=== PATIENT | female | born 1935 | race Caucasian/White ===

== ENCOUNTER → 2020-08-03 | Outpatient (CLI) | payer MEDICARE ==
[~2020-08-03] MED LIST: ALBU2TAB4 PO; AMLO-483 PO; ATO40T PO; AZIL1TAB PO; CALC600T57 PO; CELE200C PO; CETI10CA5 PO; CLOP75TA28 PO; COEN400C8 OR; ESOM40CA39 PO; EZET10TA22 PO; FLU220IH INH; FOLI1TAB6 PO; GLUC1CAP11 PO; HYDR50TA15 PO; LANS15CA21 PO; LEVO112T32 PO; LISI-646 PO; METH500T22 PO; MONT10TA23 PO; MULTTAB99 PO; NOR10T PO; OMEG1CAP59 PO; ONDA-144 PO; OXYM0.0594; ROSU40TA PO; [UNRECOGNIZED DRUG - CODE]
[2020-08-03 12:22] LABS: Basophils # (auto) 0 10 ^3/uL (0-0.2); Basophils % (auto) 0.6 % (0.0-2.0); Eosinophils # (auto) 0.2 10 ^3/uL (0-0.8); Eosinophils % (auto) 2.6 % (0.0-7.0); Hematocrit 35.3 % (36.0-46.0); Hemoglobin 11.9 g/dL (12.2-16.2); Lymphocytes # (auto) 1.9 10 ^3/uL (0.4-5.4); Lymphocytes % (auto) 29.5 % (10.0-50.0); Mean Corpuscular Hgb Conc. 33.7 g/dL (32.0-36.0); Mean Corpuscular Volume 88.9 fL (80.0-100.0); Monocytes # (auto) 0.6 10 ^3/uL (0-1.3); Monocytes % (auto) 8.8 % (0.0-12.0); Neutrophils # (auto) 3.7 10 ^3/uL (1.6-8.6); Neutrophils % (auto) 58.5 % (37.0-80.0); Nucleated Red Blood Cells % 0.1 %; Platelet Count (auto) 432 10^3/uL (140-450); Red Blood Cells 3.96 10^6/uL (4.0-5.20); Red Cell Distribution Width 13.3 % (11.8-14.3); White Blood Cell 6.3 10^3/uL (4.4-10.8)
[2020-08-03 12:54] LABS: INR 1.18 (0.9-1.15)
[2020-08-03 13:00] LABS: Urine Bacteria NONE SEEN /hpf (None Seen); Urine Blood Negative /uL (Negative); Urine Specific Gravity 1.006 (1.001-1.035); Urine WBC <1 /hpf (0 - 5)
[2020-08-03 13:47] LABS: Calcium 9.1 mg/dL (8.5-10.1); Potassium 4.9 mmol/L (3.5-5.1)
[2020-08-03 13:53] LABS: BUN/Creatinine Ratio 25.6; Bilirubin, Total 0.3 mg/dL (0.2-1.0); Total Protein 6.6 g/dL (6.4-8.2)
== END | disposition home or self-care (01) ==
LOC: LAB 11:59
PROVIDERS: ATTEND Orthopaedic Surgery Adult Reconstructive Orthopaedic Surgery
DX: D68.9 Coagulation defect, unspecified (principal); I10 Essential (primary) hypertension
CPT/HCPCS: 36415; 80053; 81001; 85025; 85610; 85730

== ENCOUNTER 2020-08-08 06:31 | Inpatient (IN) | payer MEDICARE ==
[~2020-08-08] VITALS: Ht 30.5 cm; Wt 76.4 kg
[2020-08-08] MEDS: ACETAMINOPHEN IV 100 ML IV ONE ×2 (07:00→07:52)
[2020-08-08] MEDS ORDERED: VANCOMYCIN HCL 1000 MG VL ONE (07:21)
[2020-08-08] MEDS ORDERED: TRANEXAMIC ACID 20 ML ONE (07:24)
[2020-08-08] MEDS ORDERED: BUPIVACAINE W/ EPINEPH 0.25% INJ 50ML MDV ONE (07:24)
[2020-08-08] MEDS ORDERED: SUCCINYLCHOLINE CHLORIDE 20 MG/ML 10ML VIAL IV ONE (07:45)
[2020-08-08] MEDS ORDERED: LIDOCAINE 1% (LOCAL ANESTH.) PF 5ml SDV ONE (07:45)
[2020-08-08] MEDS ORDERED: ACETAMINOPHEN IV 1000 MG/100ML (10MG/ML) IV ONE (07:45)
[2020-08-08] MEDS ORDERED: KETOROLAC TROMETH 30 MG/ML 1ML VIAL ONE (07:47)
[2020-08-08] MEDS ORDERED: MIDAZOLAM HCL 1MG/1ML-2 ML VIAL ONE (07:50)
[2020-08-08] MEDS ORDERED: ROCURONIUM 10MG/ML 10ML VIAL IV ONE (07:52)
[2020-08-08] MEDS ORDERED: ceFAZolin 1GM/50ML 100 ML IV ONE (07:53)
[2020-08-08] MEDS ORDERED: ETOMIDATE (2MG/ML) 20ML VIAL IV ONE (08:04)
[2020-08-08] MEDS ORDERED: METOCLOPRAMIDE HCL 5MG/ml INJ 2ml VIAL ONE (08:05)
[2020-08-08] MEDS ORDERED: fentaNYL CITRATE 100 MCG/2 ML VL ONE (08:28)
[2020-08-08] MEDS ORDERED: diphenhdrAMINE HCL 50 MG/1 ML VL IV ONE (08:45)
[2020-08-08] MEDS ORDERED: ONDANSETRON HCL 4 MG/2 ML VIAL IV PRN (08:45)
[2020-08-08] MEDS ORDERED: NALOXONE HCL 0.4 MG/ML VIAL IV PRN (08:45)
[2020-08-08] MEDS ORDERED: HYDROmorphone HCL 2 MG/ML VL IV PRN (08:45)
[2020-08-08] MEDS ORDERED: GLYCOPYRROLATE 0.2 MG/ML 1ML VIAL ONE (09:41)
[2020-08-08] MEDS ORDERED: NEOSTIGMINE 1 MG/ML INJ (10mg/10ML VIAL) ONE (09:41)
[2020-08-08] MEDS ORDERED: MEPERIDINE HCL (25 MG/ML) 1ML VIAL ONE (09:50)
[2020-08-08] MEDS ORDERED: LEVOTHYROXINE SODIUM 112 MCG TAB PO SCH (10:00)
[2020-08-08] MEDS ORDERED: AZILSARTAN MEDOXOMIL 40 MG PO SCH (10:00)
[2020-08-08] MEDS ORDERED: ACETAMINOPHEN 325 MG TAB PO PRN (10:00)
[2020-08-08] MEDS ORDERED: NITROGLYCERIN 0.4 MG SL TAB SL PRN (10:00)
[2020-08-08] MEDS: MONTELUKAST SODIUM 10 MG TAB PO SCH (10:00)
[2020-08-08] MEDS: CLOPIDOGREL BISULFATE 75 MG TAB PO SCH (10:00)
[2020-08-08] MEDS: ceFAZolin 1GM/50ML 50 ML IV SCH ×2 (10:00→19:38)
[2020-08-08] MEDS: MULTIPLE VITAMIN TAB PO SCH (10:00)
[2020-08-08] MEDS: D5W/LACTATED RINGERS 1,000 ML IV SCH ×2 (10:00→23:38)
[2020-08-08] MEDS ORDERED: diphenhdrAMINE HCL 25 MG CAP PO PRN (10:00)
[2020-08-08] MEDS: LISINOPRIL 20 MG TAB PO SCH ×2 (10:00→22:18)
[2020-08-08] MEDS: HYDROmorphone HCL 2 MG/ML VL IV PRN ×2 (10:30→10:40)
[2020-08-08] MEDS: SODIUM CHLOR 0.9% PF (SALINE LOCK) 10ML VIAL/SYR IV SCH ×2 (14:00→22:16)
[2020-08-08] MEDS: HYDROcodone-ACET 10/325MG TAB PO PRN (16:13)
[2020-08-08] MEDS: METHOCARBAMOL 500 MG TAB PO SCH ×2 (16:56→22:21)
[2020-08-08] MEDS: hydrALAZINE HCL 25 MG TAB PO SCH ×2 (16:56→22:17)
[2020-08-08] MEDS ORDERED: MILK OF MAGNESIA 30ML SUSP PO PRN (19:00)
[2020-08-08] MEDS ORDERED: ALBUTEROL SULF 2.5 MG/0.5ML(0.5%) NEB SOLN NEB PRN (19:30)
--- NOTE | 2020-08-08 19:31 | NUR ---
Opening Shift Note Assumed care of patient after receiving report from RADHA Amaro. Patient is awake and alert with no S/S of distress/SOB or pain. Call light within reach, bed in lowest locked position x2 side rails, HOB semi fowlers. Instructed on POC and to call for assist PRN, will continue to monitor for changes Q1hr and PRN.
[2020-08-08] MEDS: ONDANSETRON ODT 4 MG TAB PO PRN (19:39)
--- NOTE | 2020-08-08 20:00 | NUR ---
Scheduled IVF held/Not due D5/LR scheduled for 20:00 held, not due at this time as approximately 400 ml of fluid still remaining in bag. Will administer when remaining fluid is complete.
--- NOTE | 2020-08-08 21:50 | NUR ---
IV removal Patient c/o IV leaking. IV DC'd with clean sterile technique, catheter fully intact. Pressure dressing applied to site. Patient tolerated well.
[2020-08-08 22:00] VITALS: BP 148/76
[2020-08-08] MEDS: ATORVASTATIN 20 MG TAB PO SCH (22:00)
[2020-08-08] MEDS: FLUTICASONE PROP NASAL SPR 0.05 % (50MCG) 16GM EACHNOSTRI SCH (22:00)
[2020-08-08] MEDS: CELECOXIB 100 MG CAP PO SCH (22:17)
--- NOTE | 2020-08-08 22:57 | NUR ---
IV insertion IV access obtained, via clean sterile technique by inserting 22 gauge catheter at right hand after 1 attempt. IV secured properly. No trauma to site. Patient tolerated well.
[2020-08-09 00:12] VITALS: BP 148/76
--- NOTE | 2020-08-09 00:12 | NUR ---
Respiratory note: PT SEEN AND ASSESSED FOR PRN MED NEB TX AT 0012. TX IS NOT INDICATED AT THIS TIME. PT WAS SLEEPING WHEN ENTERING THE ROOM, NO SIGNS OF DISTRESS NOTED. HR 72 RR 16 SP02 95% ON ROOM AIR.
[2020-08-09] MEDS: ceFAZolin 1GM/50ML 50 ML IV SCH (02:10)
[2020-08-09 05:00] VITALS: BP 158/70
[2020-08-09] MEDS: HYDROcodone-ACET 10/325MG TAB PO PRN ×3 (05:11→20:10)
[2020-08-09] MEDS: D5W/LACTATED RINGERS 1,000 ML IV SCH (06:12)
[2020-08-09] MEDS: METHOCARBAMOL 500 MG TAB PO SCH ×3 (06:13→22:02)
[2020-08-09] MEDS: SODIUM CHLOR 0.9% PF (SALINE LOCK) 10ML VIAL/SYR IV SCH ×3 (06:13→22:02)
[2020-08-09] MEDS: LEVOTHYROXINE SODIUM 112 MCG TAB PO SCH (06:14)
[2020-08-09] MEDS: hydrALAZINE HCL 25 MG TAB PO SCH ×3 (06:25→22:02)
[2020-08-09 09:15] LABS: Basophils # (auto) 0 10 ^3/uL (0-0.2); Basophils % (auto) 0.6 % (0.0-2.0); Eosinophils # (auto) 0.1 10 ^3/uL (0-0.8); Hematocrit 31.5 % (36.0-46.0); Hemoglobin 10.6 g/dL (12.2-16.2); Lymphocytes # (auto) 0.9 10 ^3/uL (0.4-5.4); Lymphocytes % (auto) 10.7 % (10.0-50.0); Mean Corpuscular Hgb Conc. 33.5 g/dL (32.0-36.0); Mean Corpuscular Volume 89.7 fL (80.0-100.0); Monocytes # (auto) 0.7 10 ^3/uL (0-1.3); Monocytes % (auto) 8.1 % (0.0-12.0); Neutrophils # (auto) 6.9 10 ^3/uL (1.6-8.6); Neutrophils % (auto) 79.6 % (37.0-80.0); Platelet Count (auto) 265 10^3/uL (140-450); Red Blood Cells 3.51 10^6/uL (4.0-5.20); Red Cell Distribution Width 13.3 % (11.8-14.3); White Blood Cell 8.6 10^3/uL (4.4-10.8)
[2020-08-09 09:35] LABS: Albumin 2.7 g/dL (3.4-5.0); Potassium 4.3 mmol/L (3.5-5.1)
[2020-08-09 09:39] LABS: BUN/Creatinine Ratio 16.9; Bilirubin, Total 0.3 mg/dL (0.2-1.0); Total Protein 5.2 g/dL (6.4-8.2)
[2020-08-09 09:51] VITALS: BP 125/59
[2020-08-09] MEDS ORDERED: AZILSARTAN MEDOXOMIL 40 MG PO SCH (10:00)
--- NOTE | 2020-08-09 10:00 | NUR ---
Respiratory note: ASSESSED PT FOR PRN TX PT WAS AWAKE AND ALERT, NO RESP DISTRESS NOTED. HR 86, RR 18, SPO2 95% ON ROOM AIR. BS ARE CLEAR, NO INDICATION FOR TX AT THIS TIME. PT KNOWS TO HAVE RT PAGED IF TX IS NEEDED.
[2020-08-09 10:19] LABS: INR 1.4 (0.9-1.15); Partial Thromboplastin Time 22.7 sec (23.0-31.2)
[2020-08-09] MEDS: FLUTICASONE PROP NASAL SPR 0.05 % (50MCG) 16GM EACHNOSTRI SCH ×2 (10:47→22:00)
[2020-08-09] MEDS: LORATADINE 10 MG TAB PO SCH (10:48)
[2020-08-09] MEDS: CELECOXIB 100 MG CAP PO SCH ×2 (10:48→22:53)
[2020-08-09] MEDS: MULTIPLE VITAMIN TAB PO SCH (10:48)
[2020-08-09] MEDS: CLOPIDOGREL BISULFATE 75 MG TAB PO SCH (10:49)
[2020-08-09] MEDS: amLODIPine BESYLATE 5 MG TAB PO SCH (10:49)
[2020-08-09 13:00] VITALS: BP 139/80
[2020-08-09] MEDS: MONTELUKAST SODIUM 10 MG TAB PO SCH (15:24)
[2020-08-09] MEDS: LISINOPRIL 20 MG TAB PO SCH ×2 (15:25→22:04)
[2020-08-09 16:30] VITALS: BP 138/64
[2020-08-09] MEDS: SODIUM CHLORIDE 0.9% 1,000 ML IV SCH (17:31)
[2020-08-09] MEDS: ONDANSETRON ODT 4 MG TAB PO PRN (18:20)
--- NOTE | 2020-08-09 18:36 | NUR ---
Respiratory note: NO PRN TX GIVEN AT THIS TIME, NOT INDICATED. PT DENIES SOB AT THIS TIME, SPO2 98% ON R/A. PT STATES SHE JUST WEARS O2 AT NIGHT AT HOME. NO SOB NOTED, PT FINISHING DINNER.
--- NOTE | 2020-08-09 19:30 | NUR ---
Opening Shift Note Assumed care of patient, awake and alert x4. No S/S of distress/SOB. Complaints of pain 9/0-10 to the left shoulder, will medicate as ordered. Dressing to the left shoulder is C/S/I. Left arm brace is in place. Call light is within reach, side rails up x2, bed is in the lowest position. Instructed on POC and to call for assist PRN, will continue to monitor for changes Q1hr and PRN.
--- NOTE | 2020-08-09 20:10 | NUR ---
Patient is complaining of aching pain to the left shoulder. 9/0-10. She is requesting Ashley 10. Ashley 10 administered, call light is within reach, will continue to monitor.
--- NOTE | 2020-08-09 21:05 | NUR ---
Patient is resting in bed asleep, no S/S of pain noted.
[2020-08-09 22:00] VITALS: BP 135/77
[2020-08-09] MEDS: ATORVASTATIN 20 MG TAB PO SCH (22:02)
[2020-08-10] MEDS: HYDROcodone-ACET 10/325MG TAB PO PRN ×4 (01:01→19:30)
--- NOTE | 2020-08-10 01:01 | NUR ---
Patient is complaining of aching pain to the left shoulder. 8/0-10. [place] 10 administered, call light is within reach, will continue to monitor.
--- NOTE | 2020-08-10 02:01 | NUR ---
Patient is resting in bed asleep, no S/S of pain noted.
[2020-08-10 05:00] VITALS: BP 138/60
[2020-08-10] MEDS: SODIUM CHLORIDE 0.9% 1,000 ML IV SCH ×2 (05:50→19:10)
[2020-08-10] MEDS: SODIUM CHLOR 0.9% PF (SALINE LOCK) 10ML VIAL/SYR IV SCH ×3 (05:57→21:59)
[2020-08-10] MEDS: METHOCARBAMOL 500 MG TAB PO SCH ×3 (05:57→21:58)
[2020-08-10] MEDS: hydrALAZINE HCL 25 MG TAB PO SCH ×3 (05:58→21:57)
[2020-08-10] MEDS: LEVOTHYROXINE SODIUM 112 MCG TAB PO SCH (06:29)
--- NOTE | 2020-08-10 06:29 | NUR ---
Patient is complaining of pain 8/0-10 to the left shoulder stating it is hurting enough to keep her from falling asleep. [place] 10 administered.
--- NOTE | 2020-08-10 07:34 | NUR ---
Respiratory note: PT OXYGEN DELIVERY AND VITALS ASSESSED. SPO2 94% HEART RATE 81 BREATH SOUNDS CLEAR. PT IN NO RESPIRATORY DISTRESS AT THIS TIME. Addendum: 08/10/20 at 0736 by GERARDO BROOKS RT RT Amended: Links added.
--- NOTE | 2020-08-10 07:45 | NUR ---
STATUS PT SITTING IN BED, AWAKE A&O EATING BREAKFAST. PT DRESSING TO LEFT UPPER ARM/SHOULDER CDI. PT C/O PAIN TO LEFT SHOULDER S/P SX, HOWEVER NOT WANTING MEDICATION AT THIS TIME. PT REQUESTING STOOL SOFTENER DUE TO FEELING A BIT CONSTIPATED. LAST BM THE 4TH PRE ADMISSION. WILL REQUEST PRUNE JUICE AND LOOK AND MEDICATE PER JAN. PT BED IN LOW POSITION, CALL LIGHT IN REACH, NO S/S OF DISTRESS AT THIS TIME. WILL CONTINUE TO MONITOR.
[2020-08-10 09:00] VITALS: BP 118/62
--- NOTE | 2020-08-10 09:42 | NUR ---
DR PEOPLES AT BEDSIDE STATES PT WILL BE OK TO D/C TOMORROW ORDER GIVEN FOR [facility]
[2020-08-10] MEDS: CELECOXIB 100 MG CAP PO SCH ×2 (10:00→22:20)
--- NOTE | 2020-08-10 11:31 | NUR ---
Assessment Patient is an 84-year-old female who is alert and oriented. Prior to admission patient lived home with her [place] and functioned independently. Per patient prior to admission patient can care for her own ADLs. Per patient she has a walker and cane for home use. Per patient she will return home to her prior living arrangements post discharge and her will transport her home. Advised patient there is a social service consult for home health safety evaluation and physical therapy. Information and choice letter was given to patient. Patient requested [facility] that doctor recommended. Informed patient clinical information will be faxed to agency. Informed patient she has a right to participate in all discharge planning. Patient verbalized understanding and agreed to discharge plan. Faxed clinical information to [facility]. Per [facility] with [facility] patient has been [facility] and service to start within 24-48hrs upon d/c day. Addendum: 08/10/20 at 1133 by SANJEEV RIZZO Amended: Links added.
[2020-08-10] MEDS: FLUTICASONE PROP NASAL SPR 0.05 % (50MCG) 16GM EACHNOSTRI SCH ×2 (11:33→22:19)
[2020-08-10] MEDS: amLODIPine BESYLATE 5 MG TAB PO SCH (11:33)
[2020-08-10] MEDS: CLOPIDOGREL BISULFATE 75 MG TAB PO SCH (11:34)
[2020-08-10] MEDS: MULTIPLE VITAMIN TAB PO SCH (11:34)
[2020-08-10] MEDS: LORATADINE 10 MG TAB PO SCH (11:34)
[2020-08-10] MEDS: LISINOPRIL 20 MG TAB PO SCH ×2 (11:35→22:00)
[2020-08-10] MEDS: MONTELUKAST SODIUM 10 MG TAB PO SCH (11:36)
[2020-08-10 13:00] VITALS: BP 147/82
--- NOTE | 2020-08-10 13:35 | NUR ---
Patient back from OR at this time dressing to right stump c/d/i VSS bp 149/86 hr 55 o2 97% RR16, pt denies pain at this time. Patient sitting up eating at this time, call light within reach. Will medicate with 1000 morning meds at this time Addendum: 08/10/20 at 1347 by Arlene Cervantes RN DISREGARD NOTE WRONG PATIENT
--- NOTE | 2020-08-10 16:51 | NUR ---
SPOKE TO PT RE DISCHARGE INSTRUCTIONS AND SHE WAS SURPRISED PT STATES SHE WASN'T PREPARED TO GO TODAY SHE TOLD HER SHE WOULDN'T BE HOME UNTIL TOMORROW AND HE IS STAYING WITH FAMILY TONIGHT. JUDE CAMARGO NOTIFIED AND APOLOGIZED FOR ANY MISUNDERSTANDING. D/C ORDER CHANGED TO TOMORROW.
--- NOTE | 2020-08-10 16:54 | NUR ---
PAIN MEDICATION FILLED AND READ[facility] PT AWARE AND STATES HER WILL PICK IT UP TOMORROW WHEN HE PICKS HER UP.
[2020-08-10 16:55] LABS: Calcium 8.2 mg/dL (8.5-10.1); Potassium 4.4 mmol/L (3.5-5.1)
[2020-08-10 17:00] VITALS: BP 129/66
--- NOTE | 2020-08-10 19:30 | NUR ---
Opening Shift Note Received report from ermelinda Wang RN. Assumed care of patient, awake and alert x4. No S/S of distress/SOB. Complaints of pain to left, will medicate as ordered. Dressing to the left shoulder is Clean, dry and intact. Left arm brace in place. Call light is within reach, side rails up x2, bed is in the lowest position. Instructed on POC and to call for assist PRN, will continue to monitor for changes Q1hr and PRN.
--- NOTE | 2020-08-10 19:43 | NUR ---
PT ASSESSED FOR PRN MED NEB TX. SPO2 95% ON RA, HR 92. PT DENIES ANY RESPIRATORY DISTRESS. NO TX INDICATED. PT IS AWARE TO HAVE RT PAGED IF TX NEEDED.
[2020-08-10] MEDS: ATORVASTATIN 20 MG TAB PO SCH (21:57)
[2020-08-10] MEDS: KETOROLAC TROMETH 30 MG/ML 1ML VIAL IV PRN (21:57)
[2020-08-10 22:00] VITALS: BP 135/68
[2020-08-11] MEDS: HYDROcodone-ACET 10/325MG TAB PO PRN ×3 (03:18→13:35)
[2020-08-11 05:00] VITALS: BP 134/71
[2020-08-11] MEDS: SODIUM CHLOR 0.9% PF (SALINE LOCK) 10ML VIAL/SYR IV SCH (06:12)
[2020-08-11] MEDS: hydrALAZINE HCL 25 MG TAB PO SCH (06:13)
[2020-08-11] MEDS: METHOCARBAMOL 500 MG TAB PO SCH (06:13)
[2020-08-11] MEDS: SODIUM CHLORIDE 0.9% 1,000 ML IV SCH (06:14)
[2020-08-11] MEDS: LEVOTHYROXINE SODIUM 112 MCG TAB PO SCH (06:14)
--- NOTE | 2020-08-11 07:30 | NUR ---
Opening Shift Note Assumed care of patient, awake and alert. No S/S of distress/SOB, reports moderate pain. Instructed on POC and to call for assist PRN, will continue to monitor for changes Q1hr and PRN.
[2020-08-11] MEDS: FLUTICASONE PROP NASAL SPR 0.05 % (50MCG) 16GM EACHNOSTRI SCH (09:37)
[2020-08-11] MEDS: LORATADINE 10 MG TAB PO SCH (09:38)
[2020-08-11] MEDS: MULTIPLE VITAMIN TAB PO SCH (09:38)
[2020-08-11] MEDS: CELECOXIB 100 MG CAP PO SCH (09:38)
[2020-08-11] MEDS: amLODIPine BESYLATE 5 MG TAB PO SCH (09:39)
[2020-08-11] MEDS: CLOPIDOGREL BISULFATE 75 MG TAB PO SCH (09:39)
[2020-08-11] MEDS: LISINOPRIL 20 MG TAB PO SCH (09:40)
[2020-08-11] MEDS: MONTELUKAST SODIUM 10 MG TAB PO SCH (09:40)
[2020-08-11 11:25] VITALS: BP 114/58
[2020-08-11] MEDS: KETOROLAC TROMETH 30 MG/ML 1ML VIAL IV PRN (11:53)
--- NOTE | 2020-08-11 14:00 | NUR ---
Discharge instructions given as ordered. Encourage to follow up with PMD as instructed. All questions and concerns addressed. Patient verbalized understanding. Medication reconciliation form completed and copy given to patient. Home medications held in Pharmacy returned to patient. IV removed with catheter intact, pressure dressing applied. Telemetry unit returned to ICU. Patient taken to vehicle via wheelchair with all personal belongings, brace in place, accompanied by staff and family member. No distress noted at time of departure.
== END 2020-08-11 14:15 | disposition home health service (06) | DRG 483 ==
LOC: OVERFLOW 06:31 → EDSTATUS 09:30 → TELE-WESTW 12:22
PROVIDERS: ADMIT Orthopaedic Surgery Adult Reconstructive Orthopaedic Surgery; ATTEND Orthopaedic Surgery Adult Reconstructive Orthopaedic Surgery
PROC: 0RRK00Z Replacement of Left Shoulder Joint with Reverse Ball and Socket Synthetic Substitute, Open Approach (ICD-10-PCS; principal; 2020-08-08 08:04)
DX: M19.012 Primary osteoarthritis, left shoulder (principal); I25.10 Atherosclerotic heart disease of native coronary artery without angina pectoris; I10 Essential (primary) hypertension; J45.909 Unspecified asthma, uncomplicated; Z20.828 Contact with and (suspected) exposure to other viral communicable diseases; E78.5 Hyperlipidemia, unspecified; E03.9 Hypothyroidism, unspecified; Z85.3 Personal history of malignant neoplasm of breast; Z83.3 Family history of diabetes mellitus; Z88.5 Allergy status to narcotic agent; Z88.8 Allergy status to other drugs, medicaments and biological substances
CPT/HCPCS: 36415; 73030; 80048; 80053; 85025; 85610; 85730; 86850; 86900; 86901; A4565; C1713; G0378; J0131; J0330; J0690; J1885; J2250; J2405; Q0162

== ENCOUNTER 2022-01-12 10:01 | Emergency (ER) | payer MEDICARE ==
[~2022-01-12] VITALS: Ht 157.5 cm; Wt 66.2 kg
[~2022-01-12 10:01] MED LIST changes: -ATO40T PO; +CALC1TAB92 PO; -CALC600T57 PO; -ESOM40CA39 PO; -LANS15CA21 PO; -LISI-646 PO; +LISI20TA28 PO
[2022-01-12] MEDS ORDERED: cloNIDine HCL 0.1 MG TAB PO ONE (11:15)
[2022-01-12 12:10] VITALS: BP 130/55
== END 2022-01-12 12:34 | disposition home or self-care (01) ==
LOC: ER 10:01
DX: I10 Essential (primary) hypertension (principal); I25.2 Old myocardial infarction; Z95.1 Presence of aortocoronary bypass graft; Z79.899 Other long term (current) drug therapy; Z79.01 Long term (current) use of anticoagulants; Z88.5 Allergy status to narcotic agent; Z88.8 Allergy status to other drugs, medicaments and biological substances
CPT/HCPCS: 93005

== ENCOUNTER → 2022-03-17 | Emergency (ER) | payer MEDICARE ==
[~2022-03-17] VITALS: Ht 157.5 cm; Wt 65.8 kg
[2022-03-17 20:37] VITALS: BP 186/66
== END | disposition left against medical advice (07) ==
LOC: ER 20:37
DX: R07.81 Pleurodynia (principal); M25.552 Pain in left hip; M25.562 Pain in left knee; M25.512 Pain in left shoulder; Z53.21 Procedure and treatment not carried out due to patient leaving prior to being seen by health care provider; W01.0XXA Fall on same level from slipping, tripping and stumbling without subsequent striking against object, initial encounter; Y93.89 Activity, other specified; Y92.89 Other specified places as the place of occurrence of the external cause; Y99.8 Other external cause status

== ENCOUNTER 2024-08-22 21:53 | Inpatient (IN) | payer MEDICARE ==
[~2024-08-22] VITALS: Ht 152.4 cm; Wt 66.3 kg
[~2024-08-22 21:53] MED LIST changes: +ALBU2TAB11 PO; -ALBU2TAB4 PO; -AMLO-483 PO; +AMLO1TAB21 PO; +CETI-176 PO; -CETI10CA5 PO; +FOLI-119 PO; -FOLI1TAB6 PO; -HYDR50TA15 PO; +HYDR50TA47 PO; -LISI20TA28 PO; +LISI20TA56 PO; +METH-1181 PO; -METH500T22 PO; -ROSU40TA PO; +ROSU40TA81 PO
[2024-08-22 22:35] LABS: Urine Bacteria None Seen /hpf (None Seen)
[2024-08-22 22:45] LABS: Urine Blood Negative /uL (Negative); Urine Clarity Clear (Clear); Urine Color Colorless (Yellow); Urine Protein, UAD TRACE (Negative); Urine Urobilinogen Normal (Negative); Urine WBC <1 /hpf (0 - 5)
[2024-08-23] VITALS (7 sets, daily range): BP systolic 155–205; BP diastolic 78–111; PULSE 58–86; RESP 14–20; TEMP 97.6–98.1; O2SAT 95–97
[2024-08-23 00:40] LABS: Basophils # (auto) 0.1 10 ^3/uL (0-0.2); Basophils % (auto) 0.7 % (0.0-2.0); Eosinophils # (auto) 0.1 10 ^3/uL (0-0.8); Eosinophils % (auto) 0.8 % (0.0-7.0); Hematocrit 32.7 % (36.0-46.0); Hemoglobin 11.3 g/dL (12.2-16.2); Lymphocytes # (auto) 1.3 10 ^3/uL (0.4-5.4); Lymphocytes % (auto) 13.5 % (10.0-50.0); Mean Corpuscular Hemoglobin 30.8 pg (28.0-32.0); Mean Corpuscular Hgb Conc. 34.4 g/dL (32.0-36.0); Mean Corpuscular Volume 89.5 fL (80.0-100.0); Monocytes # (auto) 0.8 10 ^3/uL (0-1.3); Monocytes % (auto) 8.4 % (0.0-12.0); Neutrophils # (auto) 7.5 10 ^3/uL (1.6-8.6); Neutrophils % (auto) 76.6 % (37.0-80.0); Nucleated Red Blood Cells % 0.1 %; Platelet Count (auto) 401 10^3/uL (140-450); Red Blood Cells 3.65 10^6/uL (4.0-5.20); Red Cell Distribution Width 13.5 % (11.8-14.3); White Blood Cell 9.8 10^3/uL (4.4-10.8)
[2024-08-23 00:48] LABS: Chloride 102 mmol/L (98-107); Potassium 4.6 mmol/L (3.5-5.1); Sodium 131 mmol/L (136-145)
[2024-08-23 00:49] LABS: Anion Gap 7 (5-15); Carbon Dioxide 22 mmol/L (20-31)
[2024-08-23 00:50] LABS: Calcium 9.4 mg/dL (8.7-10.4)
[2024-08-23 00:54] LABS: BUN/Creatinine Ratio 23.1 (10.0-20.0); Blood Urea Nitrogen 18 mg/dL (9-23); Glucose 119 mg/dL (74-106)
[2024-08-23] MEDS: ONDANSETRON HCL 4 MG/2 ML VIAL IV ONE (01:09)
[2024-08-23] MEDS: KETOROLAC TROMETH 30 MG/ML 1ML VIAL IV ONE (01:09)
[2024-08-23] MEDS: LIDOCAINE 5% TOPICAL PATCH TOP ONE (03:22)
[2024-08-23] MEDS ORDERED: IBUPROFEN 600 MG TAB PO PRN (03:45)
[2024-08-23] MEDS: SODIUM CHLORIDE 0.9% 1,000 ML IV SCH (04:02)
[2024-08-23] MEDS: hydrALAZINE HCL 25 MG TAB PO SCH (05:56)
[2024-08-23] MEDS: LEVOTHYROXINE SODIUM 112 MCG TAB PO SCH (05:56)
[2024-08-23] MEDS: hydrALAZINE HCL 20 MG/ML VL IV PRN (07:10)
[2024-08-23 07:23] LABS: Basophils # (auto) 0.1 10 ^3/uL (0-0.2); Basophils % (auto) 0.8 % (0.0-2.0); Eosinophils # (auto) 0.1 10 ^3/uL (0-0.8); Eosinophils % (auto) 1.4 % (0.0-7.0); Hemoglobin 10.8 g/dL (12.2-16.2); Lymphocytes # (auto) 1.4 10 ^3/uL (0.4-5.4); Lymphocytes % (auto) 19.1 % (10.0-50.0); Mean Corpuscular Hemoglobin 31.3 pg (28.0-32.0); Mean Corpuscular Volume 89.3 fL (80.0-100.0); Monocytes # (auto) 0.8 10 ^3/uL (0-1.3); Monocytes % (auto) 11.2 % (0.0-12.0); Neutrophils # (auto) 4.8 10 ^3/uL (1.6-8.6); Neutrophils % (auto) 67.5 % (37.0-80.0); Platelet Count (auto) 356 10^3/uL (140-450); Red Blood Cells 3.46 10^6/uL (4.0-5.20); Red Cell Distribution Width 13.7 % (11.8-14.3); White Blood Cell 7.2 10^3/uL (4.4-10.8)
[2024-08-23] MEDS ORDERED: NITROGLYCERIN 0.4 MG SL TAB SL PRN (07:30)
[2024-08-23 07:32] LABS: Alanine Aminotransferase 47 U/L (7-40); Albumin 3.9 g/dL (3.2-4.8); Alkaline Phosphatase 62 U/L (46-116); Anion Gap 5 (5-15); Aspartate Aminotransferase 29 U/L (13-40); Blood Urea Nitrogen 18 mg/dL (9-23); Calcium 8.9 mg/dL (8.7-10.4); Carbon Dioxide 25 mmol/L (20-31); Chloride 104 mmol/L (98-107); Glucose 102 mg/dL (74-106); Potassium 4.1 mmol/L (3.5-5.1); Sodium 134 mmol/L (136-145)
[2024-08-23 07:33] LABS: Bilirubin, Total 0.5 mg/dL (0.2-1.0); Total Protein 5.6 g/dL (5.7-8.2)
[2024-08-23] MEDS: MULTIPLE VITAMIN TAB PO SCH (11:26)
[2024-08-23] MEDS: LISINOPRIL 20 MG TAB PO SCH (11:27)
[2024-08-23] MEDS: CLOPIDOGREL BISULFATE 75 MG TAB PO SCH (11:27)
[2024-08-23] MEDS: FAMOTIDINE (10MG/ML) 2ML VL IV SCH (11:27)
[2024-08-23] MEDS: DOCUSATE SOD 100 MG CAP PO PRN (21:36)
[2024-08-23] MEDS: ATORVASTATIN 20 MG TAB PO SCH (21:38)
[2024-08-23] MEDS: ACETAMINOPHEN 325 MG TAB PO PRN (23:03)
[2024-08-24] VITALS (8 sets, daily range): BP systolic 144–175; BP diastolic 59–82; PULSE 65–95; RESP 16–20; TEMP 97.8–98.9; O2SAT 92–96
[2024-08-24] MEDS: ONDANSETRON HCL 4 MG/2 ML VIAL IV PRN (05:36)
[2024-08-24 10:29] LABS: Basophils # (auto) 0 10 ^3/uL (0-0.2); Basophils % (auto) 0.3 % (0.0-2.0); Eosinophils # (auto) 0 10 ^3/uL (0-0.8); Hematocrit 35.4 % (36.0-46.0); Hemoglobin 12.1 g/dL (12.2-16.2); Lymphocytes # (auto) 1.4 10 ^3/uL (0.4-5.4); Mean Corpuscular Hemoglobin 30.3 pg (28.0-32.0); Mean Corpuscular Hgb Conc. 34.1 g/dL (32.0-36.0); Monocytes # (auto) 0.9 10 ^3/uL (0-1.3); Monocytes % (auto) 8.6 % (0.0-12.0); Neutrophils # (auto) 8.5 10 ^3/uL (1.6-8.6); Neutrophils % (auto) 78.1 % (37.0-80.0); Nucleated Red Blood Cells % 0.1 %; Platelet Count (auto) 433 10^3/uL (140-450); Red Blood Cells 3.98 10^6/uL (4.0-5.20); Red Cell Distribution Width 13.3 % (11.8-14.3); White Blood Cell 10.8 10^3/uL (4.4-10.8)
[2024-08-24 10:51] LABS: Alanine Aminotransferase 40 U/L (7-40); Albumin 4.2 g/dL (3.2-4.8); Alkaline Phosphatase 70 U/L (46-116); Anion Gap 6 (5-15); Aspartate Aminotransferase 27 U/L (13-40); BUN/Creatinine Ratio 19.4 (10.0-20.0); Bilirubin, Total 0.5 mg/dL (0.2-1.0); Blood Urea Nitrogen 14 mg/dL (9-23); Calcium 9.3 mg/dL (8.7-10.4); Carbon Dioxide 25 mmol/L (20-31); Chloride 99 mmol/L (98-107); Glucose 173 mg/dL (74-106); Potassium 3.9 mmol/L (3.5-5.1); Sodium 130 mmol/L (136-145); Total Protein 6.1 g/dL (5.7-8.2)
[2024-08-24] MEDS ORDERED: traMADol HCL 50 MG TAB PO PRN (11:00)
[2024-08-24] MEDS: cloNIDine HCL 0.1 MG TAB PO ONE (11:00)
[2024-08-24] MEDS: LIDOCAINE 5% TOPICAL PATCH TOP ONE (11:15)
[2024-08-24] MEDS ORDERED: cloNIDine HCL 0.1 MG TAB PO SCH (14:00)
[2024-08-24] MEDS: amLODIPine BESYLATE 5 MG TAB PO ONE (17:29)
[2024-08-24] MEDS: MONTELUKAST SODIUM 10 MG TAB PO SCH (21:11)
[2024-08-25 05:00] VITALS: BP 166/63; PULSE 77; RESP 18; TEMP 98.2; O2SAT 92
[2024-08-25 08:00] VITALS: O2SAT 96
[2024-08-25 09:00] VITALS: BP 138/58; PULSE 96; RESP 20; TEMP 97.8; O2SAT 96
[2024-08-25] MEDS: hydroCHLOROthiazide 25 MG TAB PO SCH (09:40)
[2024-08-25] MEDS: amLODIPine BESYLATE 5 MG TAB PO SCH (09:42)
[2024-08-25] MEDS: LISINOPRIL 20 MG TAB PO SCH (09:43)
[2024-08-25] MEDS: LIDOCAINE 5% TOPICAL PATCH TOP SCH (09:43)
[2024-08-25] MEDS ORDERED: CLON0.1T PO (09:54)
[2024-08-25] MEDS ORDERED: SENN-58 PO (09:59)
[2024-08-25] MEDS ORDERED: ALUMCHW6 PO (09:59)
[2024-08-25] MEDS ORDERED: DOCU240C26 PO (10:00)
[2024-08-25] MEDS ORDERED: LIDO5PAD12 EX (10:05)
[2024-08-25 11:25] VITALS: BP 138/58; PULSE 96; RESP 20; TEMP 97.8; O2SAT 96
[2024-08-25 13:00] VITALS: BP 122/71; PULSE 83; RESP 16; TEMP 97.6; O2SAT 95
== END 2024-08-25 15:09 | disposition home or self-care (01) | DRG 552 ==
LOC: ER 21:53 → EDBD 21:53 → TELE 08-23 07:24 → TELE-EAST 08-23 10:10 → EAST 08-24 12:24
PROVIDERS: ADMIT Nurse Practitioner Family; ATTEND Internal Medicine
DX: S22.089A Unspecified fracture of T11-T12 vertebra, initial encounter for closed fracture (principal); I16.0 Hypertensive urgency; J44.89 Other specified chronic obstructive pulmonary disease; E78.5 Hyperlipidemia, unspecified; E03.9 Hypothyroidism, unspecified; I25.10 Atherosclerotic heart disease of native coronary artery without angina pectoris; I27.20 Pulmonary hypertension, unspecified; Z98.61 Coronary angioplasty status; Z95.1 Presence of aortocoronary bypass graft; I25.2 Old myocardial infarction; Z92.3 Personal history of irradiation; Z88.5 Allergy status to narcotic agent; Z85.3 Personal history of malignant neoplasm of breast; Z83.3 Family history of diabetes mellitus; Z82.49 Family history of ischemic heart disease and other diseases of the circulatory system; Z80.51 Family history of malignant neoplasm of kidney; Z79.899 Other long term (current) drug therapy; W18.39XA Other fall on same level, initial encounter; Y93.89 Activity, other specified; Y92.89 Other specified places as the place of occurrence of the external cause; Y99.8 Other external cause status
CPT/HCPCS: 36415; 70450; 71101; 72100; 80048; 80053; 81001; 84443; 85025; 93005; 93306; 96374; 97163; 99291; G0378; J1885; J2405; J3490

== ENCOUNTER → 2025-06-10 | Day surgery (SDC) | payer MEDICARE ==
[2025-06-07 12:02] LABS: Hematocrit 37.7 % (36.0-46.0); Hemoglobin 12.9 g/dL (12.2-16.2); Mean Corpuscular Hemoglobin 30.4 pg (28.0-32.0); Mean Corpuscular Volume 88.4 fL (80.0-100.0); Nucleated Red Blood Cells % 0.1 %
[2025-06-07 12:17] LABS: INR 1.22 (0.9-1.15); Partial Thromboplastin Time 25.8 SEC (24.5-34.5); Prothrombin Time 12.7 sec (9.3-11.8)
[2025-06-07 12:23] LABS: Alanine Aminotransferase 37 U/L (7-40); Alkaline Phosphatase 69 U/L (46-116); Anion Gap 9 (5-15); BUN/Creatinine Ratio 22.1 (10.0-20.0); Blood Urea Nitrogen 19 mg/dL (9-23); Calcium 9.3 mg/dL (8.7-10.4); Carbon Dioxide 25 mmol/L (20-31); Glucose 96 mg/dL (74-106); Potassium 4.6 mmol/L (3.5-5.1); Total Protein 6.6 g/dL (5.7-8.2)
[2025-06-07 12:24] LABS: Albumin 4.8 g/dL (3.2-4.8); Bilirubin, Total 0.6 mg/dL (0.2-1.0); Chloride 98 mmol/L (98-107); Sodium 132 mmol/L (136-145)
[2025-06-07 13:06] LABS: Urine Protein, UAD Negative (Negative)
[~2025-06-10] VITALS: Ht 157.5 cm; Wt 55.8 kg
[~2025-06-10] MED LIST changes: +ACET-2058 PO; +ALEN70TA21 PO; -AZIL1TAB PO; -CETI-176 PO; +DOXY-286 PO; +FAMO20TA10 PO; -FLU220IH INH; +FLUT1AER3 IN; -GLUC1CAP11 PO; +LABETALOL HCL 5 MG/ML ML 20ML VIAL IV ONE; +LIDOCAINE 2% (LOCAL ANESTH.) PF 5ml SDV ONE; -LISI20TA56 PO; +METF-1145 PO; -MULTTAB99 PO; -ONDA-144 PO; -OXYM0.0594; +PANT40TA2 PO; +PROPOFOL 10 MG/ML 20 ML IV ONE; -[UNRECOGNIZED DRUG - CODE]; +hydrALAZINE HCL 20 MG/ML VL ONE
[2025-06-10 09:30] VITALS: TEMP 97.9
--- NOTE | 2025-06-10 09:32 | DVHHP2 ---
GI H&P Pre-Op Assessment Date: 06/10/25 Chief complaint: Abdominal pain HPI: per clinic note Past medical history: per clinic note Past surgical history: per clinic note Family history: per clinic note Physical exam: General: NAD, AAOX3 HEENT: PERRL, no scleral icterus, normal hearing, gums without lesions or ble eding, oropharynx clear without erythema or exudate. Neck: Supple without enlargement of the thyroid, or lymphadenopathy. Chest: Normal size and shape, no tenderness, lung everett clear to auscultation and percussion, nonlabored breathing. Heart: RRR, no murmur Abdomen: non-distended, no tenderness to palpation, +BS, no hepatosplenomegaly Extremities: no edema Neurological: CN II-XII intact, sensation intact in all extremities, 5+ strength in all extremities Skin: No rashes, No jaundice Assessment: - abdominal pain Plan: - EGD - Risks (bleeding, infection, perforation, reaction to sedation medications and cardiopulmonary arrest) and benefit of the procedure were explained to patient. Patient agrees to undergo the procedure. AMMON GUZMAN MD Jun 10, 2025 09:32
--- NOTE | 2025-06-10 09:34 | DVHOP2 ---
Operative Report DATE OF OPERATION: 06/10/25 PROCEDURE: Upper Endoscopy. PREOPERATIVE INDICATION: The patient is a 89 -year-old female undergoing endoscopy for epigastric and left upper quadrant pain. POSTOPERATIVE DIAGNOSES: 1. Large flat antral ulcer. 2. Gastritis PROCEDURE PERFORMED BY: Ulises Castro SCOPE: Olympus videoendoscope. ASA CLASS: 3 PREOPERATIVE MEDICATIONS: CUATE with Anjum TONY PROCEDURE IN DETAIL: After obtaining an informed consent, the patient was placed on her back. The patient was then sedated with the above medications. A bite block was placed between she teeth. The endoscope was then passed through the oropharynx, into the esophagus, and through the stomach and pylorus up to the second and third part of the duodenum. The duodenum was normal in appearance. There was a large flat antral ulcer that was not bleeding. Biopsies were obtained from the antral ulcers using cold forceps. There was gastritis. Gastric biopsies were obtained using cold forceps. The GE junction was normal in appearance at 33 cm. The esophagus was normal in appearance. The endoscope was then withdrawn. The patient tolerated the procedure well without difficulty. COMPLICATIONS : None SPECIMENS: Gastric biopsies, Antral ulcer biopsies DISPOSITION: D/C to home PLAN: 1. Await for biopsy result 2. Continue with Protonix. ULISES CASTRO MD Jun 10, 2025 09:34
--- NOTE | 2025-06-10 09:35 | DVHDS2 ---
Physician Discharge Progress N Final Diagnosis: Antral ulcer, gastritis Operations or Procedures: Operations or Procedures EGD with cold biopsy Condition on Discharge: Good Disposition: Home Discharge Instructions: Diet: Regular Activity: No Restrictions, As Tolerated Medications: Resume with previous home medications Follow Up Care: Discharge Statement: "Patient was advised to return to the ER or call 911 if any headaches, dizziness, shortness of breath, chest pain, abdominal pain, bleeding, fevers, or worsening of medical condition. Patient was counseled about treatment plan, medications, possible side effects, patientverbalized understanding. All questions were answered to the best of my ability. This discharge took greater then 30 minutes in planning, reviewing do cumentation, counseling the patient, and discussing with other team members." AMMON GUZMAN MD Jun 10, 2025 09:34
[2025-06-10] MEDS: hydrALAZINE HCL 20 MG/ML VL IV ONE (10:51)
[2025-06-10 11:05] VITALS: BP 176/75; PULSE 62; RESP 14; O2SAT 97
== END | disposition home or self-care (01) ==
LOC: GI 07:59
PROVIDERS: ATTEND Internal Medicine Gastroenterology
DX: R10.12 Left upper quadrant pain (principal); K29.50 Unspecified chronic gastritis without bleeding; K31.A11 Gastric intestinal metaplasia without dysplasia, involving the antrum; K52.9 Noninfective gastroenteritis and colitis, unspecified; J45.909 Unspecified asthma, uncomplicated; I10 Essential (primary) hypertension; E11.9 Type 2 diabetes mellitus without complications; G89.29 Other chronic pain; Z79.899 Other long term (current) drug therapy; Z98.890 Other specified postprocedural states
CPT/HCPCS: 36415; 43239; 80053; 81001; 82962; 85025; 85610; 85730; 88305; 88342; J0360; J2003; J2704; J7030